=== PATIENT | male | born 1985 | race Two or more races ===

== ENCOUNTER 2020-06-05 19:33 | Emergency (ER) | payer MEDICAID ==
[~2020-06-05] VITALS: Ht 182.9 cm; Wt 99.8 kg
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
[2020-06-05] MEDS ORDERED: HYDROCODONE/APAP 5/325MG 1 EACH TABLET ONE (20:11)
--- NOTE | 2020-06-05 20:21 | NUR ---
BROUGHT TO CT
[2020-06-05] MEDS ORDERED: HYDROCODONE/APAP 5/325MG 1 EACH TABLET PO ONE (20:30)
--- NOTE | 2020-06-05 21:16 | NUR ---
Patient discharged to home in stable condition. Written and verbal after care instructions given. Patient verbalizes understanding of instruction and RX. PT R foot berhane wrapped. Pt ambualted. Picked up by family. vss.
[2020-06-05 21:17] VITALS: BP 129/72
== END 2020-06-05 21:27 | disposition home or self-care (01) ==
LOC: ER 19:33
DX: S60.221A Contusion of right hand, initial encounter (principal); S00.81XA Abrasion of other part of head, initial encounter; M54.2 Cervicalgia; M79.671 Pain in right foot; M54.6 Pain in thoracic spine; R11.2 Nausea with vomiting, unspecified; V49.49XA Driver injured in collision with other motor vehicles in traffic accident, initial encounter; Y93.89 Activity, other specified; Y92.413 State road as the place of occurrence of the external cause; Y99.8 Other external cause status
CPT/HCPCS: 70450-TC; 72125-TC; 73130-TC; 73630-TC